=== PATIENT | male | born 1950 | race Caucasian/White ===

== ENCOUNTER 2017-01-12 07:46 | Day surgery (SDC) | payer BC ==
[~2017-01-12 07:46] MED LIST: Lactated Ringers 1,000 ML IV SCH; Lidocaine 1%/Sod Bicarbonate in NS 8.4% 1 ML Syringe PRN; Sodium Chloride 0.9% 10 ML Syringe FLUSH PRN
--- NOTE | 2017-01-12 08:50 | PCM.PREANE ---
Preanesthetic Assessment - Procedure Proposed Procedure: screening colonoscopy - Anesthesia/Transfusion/Family Hx Anesthesia History: Prior Anesthesia Without Reaction Family History of Anesthesia Reaction: No - Review of Systems General: No Symptoms Pulmonary: Shortness of Breath (with exertion) Cardiovascular: Chest Pain (with exertion) Gastrointestinal: No Symptoms Neurological: No Symptoms Other: Reports: None - Physical Assessment NPO Status Date: 01/11/17 NPO Status Time: 23:00 O2 Sat by Pulse Oximetry: 95 Respiratory Rate: 16 Vital Signs: Last Vital Signs Temp 36.5 C 01/12/17 07:50 Pulse 55 L 01/12/17 07:50 Resp 16 01/12/17 07:50 BP 145/64 H 01/12/17 07:50 Pulse Ox 95 01/12/17 07:50 Height: 1.78 m Weight: 130.635 kg ASA Class: 3 Mental Status: Alert & Oriented x3 Airway Class: Mallampati = 2 Dentition: Reports: [place](s), Broken Tooth/Teeth (upper right front) Thyro-Mental Finger Breadths: 3 Mouth Opening Finger Breadths: 3 ROM/Head Extension: Full Lungs: Clear to Auscultation, Normal Respiratory Effort Cardiovascular: Regular Rate, Regular Rhythm, Murmurs - Imaging/EKG Impressions: ECHOcardiogram and myocardial perfusion scan. 05/2016 EF 70-75% good lv fx moderate Ao stenosis Mild LV hypertrophy no perfusion defects except very small apical one - Allergies Allergies/Adverse Reactions: Allergies Allergy/AdvReac Type Severity Reaction Status Date / Time Penicillins Allergy Stomach Verified 01/11/17 16:02 Ache - Anesthesia Plan Beta Doug: Metoprolol Med Last Dose Date: 01/12/17 Med Last Dose Time: 06:15 - Acknowledgements Anesthesia Type Planned: MAC Pt an Appropriate Candidate for the Planned Anesthesia: Yes Alternatives and Risks of Anesthesia Discussed w Pt/Guardian: Yes Pt/Guardian Understands and Agrees with Anesthesia Plan: Yes PreAnesthesia Questionnaire HEENT History: Reports: Impaired Vision Cardiovascular History: Reports: Afib, Angina, CAD, High Cholesterol, Hypertension, Stents, Other (See Below) Other Cardiovascular History: aortic stenosis Respiratory History: Reports: SOB, Other (See Below) Other Respiratory History: pleural effusion, cough Genitourinary History: Reports: Other (See Below) Other Genitourinary History: impotence, prostate hypertrophy, nocturia, testicular hypofunction NURSING RESIDENT History: Reports: None Musculoskeletal History: Reports: Osteoarthritis, Other (See Below) Other Musculoskeletal History: anterolisthesis, spondylolsis of lumbar region, R knee osteroarthritis, muscle spasms, back spasms Neurological History: Reports: None Psychiatric History: Reports: Other (See Below) Other Psychiatric History: chronic pain Endocrine/Metabolic History: Reports: Obesity/BMI 30+, Other (See Below) Other Endocrine/Metabolic History: hyperglycemia Hematologic History: Reports: None Immunologic History: Reports: None Oncologic (Cancer) History: Reports: None Dermatologic History: Reports: None - Past Surgical History Head Surgeries/Procedures: Reports: None Cardiovascular Surgical History: Reports: Coronary Artery Bypass Respiratory Surgical History: Reports: Thoracentesis GI Surgical History: Reports: Colonoscopy Neurological Surgical History: Reports: None Musculoskeletal Surgical History: Reports: Other (See Below) Other Musculoskeletal Surgeries/Procedures:: bilateral rotator cuff repairs, R knee meniscus repair Oncologic Surgical History: Reports: None Dermatological Surgical History: Reports: None - SUBSTANCE USE Smoking Status *Q: Former Smoker (Quit 2002 with 90 pack year hx) Days Per Week of Alcohol Use: 0 (has a drink about once per month) Recreational Drug Use History: No - HOME MEDS Home Medications: Home Meds Aspirin 325 mg PO DAILY 01/11/17 [History] Carisoprodol [Soma] 350 mg PO BEDTIME 01/11/17 [History] Fish Oil/[place]-3 Fatty Acids [Fish Oil 1,000 MG] 1,000 mg PO DAILY 01/11/17 [ History] Hydrochlorothiazide 25 mg PO DAILY 01/11/17 [History] Lisinopril 10 mg PO DAILY 01/11/17 [History] Metoprolol Tartrate [Lopressor] 12.5 mg PO DAILY 01/11/17 [History] Nitroglycerin [Nitrostat] 0.4 mg SL Q5M PRN 01/11/17 [History] atorvaSTATin [Lipitor] 20 mg PO BEDTIME 01/11/17 [History] - CURRENT (IN HOUSE) MEDS Current Meds: Current Medications Lactated Ringer's (Ringers, Lactated) 1,000 mls @ 125 mls/hr IV ASDIRECTED MELVA Stop: 01/12/17 23:00 Last Admin: 01/12/17 08:05 Dose: 125 mls/hr Lidocaine/Sodium Bicarbonate (Buffered Lidocaine 1% In Ns 8.4%) 0.25 ml .XX ONETIME PRN PRN Reason: Prior to IV Start Stop: 01/12/17 18:00 Sodium Chloride (Saline Flush) 10 ml FLUSH ASDIRECTED PRN PRN Reason: Keep Vein Open Stop: 01/12/17 18:00 Discontinued Medications Propofol (Diprivan 20 Ml) Confirm Administered Dose 200 mg .ROUTE .STK-MED ONE Stop: 01/12/17 08:52
[2017-01-12] MEDS ORDERED: Propofol 200 MG/20 ML SDV ONE ×2 (08:51→09:13)
--- NOTE | 2017-01-12 08:55 | PCM.OPNOTE ---
- General Post-Op/Procedure Note Date of Surgery/Procedure: 01/12/17 Operative Procedure(s): Colonoscopy with hot snare polypectomy Findings: 0.7 cm transverse polyp, diverticulosis Pre Op Diagnosis: Age related colon cancer screening Post-Op Diagnosis: 0.7 cm transverse polyp, diverticulosis Anesthesia Technique: MAC Primary Surgeon: Chris Vazquez Anesthesia Provider: Brian Horn EBL in mLs: 0 Complications: none Condition: Good Free Text/Narrative:: After patient gave verbal and written consent he was placed on BP and pulse ox monitoring. He was given IV sedation which he tolerated well. THe olympus colonoscope was inserted per rectum and advanced to the cecum without difficulty. The ileocecal valve and appendiceal orfice were imaged documenting cecal intubation. The prep was good, the views were good. A 0.7 cm transverse polyp was noted and removed with hot snare polypectomy. The polyp was retrieved. Moderate Diverticulosis noted throughout the colon. The scope was retroflexed in the rectum and the details are above.
[2017-01-12] MEDS ORDERED: Lidocaine 1% 4 ML ONE (09:13)
[2017-01-12] MEDS ORDERED: fentaNYL 100 MCG/2 ML SDV ONE (09:13)
--- NOTE | 2017-01-12 09:15 | PCM48HPAN ---
Post Anesthesia Note - EVALUATION WITHIN 48HRS OF ANESTHETIC Vital Signs in Normal Range: Yes Patient Participated in Evaluation: Yes Respiratory Function Stable: Yes Airway Patent: Yes Cardiovascular Function Stable: Yes Hydration Status Stable: Yes Pain Control Satisfactory: Yes Nausea and Vomiting Control Satisfactory: Yes Mental Status Recovered: Yes
[2017-01-12 09:31] VITALS: BP 124/64
== END 2017-01-12 09:50 | disposition home or self-care (01) ==
LOC: JD.SDS 07:46
PROVIDERS: ATTEND Family Medicine
DX: Z12.11 Encounter for screening for malignant neoplasm of colon (principal); D12.3 Benign neoplasm of transverse colon; K57.30 Diverticulosis of large intestine without perforation or abscess without bleeding; I25.10 Atherosclerotic heart disease of native coronary artery without angina pectoris; I10 Essential (primary) hypertension; E78.00 Pure hypercholesterolemia, unspecified; N40.1 Benign prostatic hyperplasia with lower urinary tract symptoms; E66.01 Morbid (severe) obesity due to excess calories; R73.9 Hyperglycemia, unspecified; Z95.1 Presence of aortocoronary bypass graft; Z88.0 Allergy status to penicillin; Z98.890 Other specified postprocedural states; Z79.82 Long term (current) use of aspirin; Z79.899 Other long term (current) drug therapy; Z68.41 Body mass index [BMI] 40.0-44.9, adult; Z87.891 Personal history of nicotine dependence
CPT/HCPCS: 45385; J3010; J7120; 00810; J2704

== ENCOUNTER 2022-11-14 20:19 | Emergency (ER) | payer MEDICARE, OTHER ==
[2022-11-14] MEDS ORDERED: Aspirin 81 MG Tab.Chew PO ONE (20:50)
[2022-11-14 21:18] LABS: EOSINOPHILS ABSOLUTE AUTO 0.01 K/mm3 (0.04-0.54); EOSINOPHILS PERCENT AUTO 0.5 (0.8-7.0); HEMATOCRIT 19.5 % (40.1-51.0); LYMPHOCYTES ABSOLUTE AUTO 0.86 K/mm3 (1.32-3.57); LYMPHOCYTES PERCENT AUTO 41.7 % (21.8-53.1); MEAN CORPUSCULAR HGB CONC 32.3 g/dl (32.2-35.5); MEAN CORPUSCULAR VOLUME 86.7 fl (79.0-92.2); MEAN PLATELET VOLUME 9.6 fl (9.4-12.3); MONOCYTES ABSOLUTE AUTO 0.09 K/mm3 (0.30-0.82); MONOCYTES PERCENT AUTO 4.4 % (5.3-12.2); NEUTROPHILS PERCENT AUTO 53.4 % (34.0-67.9); PLATELET COUNT,PLT 45 K/mm3 (163-337); RED BLOOD CELL COUNT 2.25 M/mm3 (4.63-6.08)
[2022-11-14 21:25] LABS: HEMOGLOBIN 6.3 gm/dl (13.7-17.5); WHITE BLOOD CELL COUNT,WBC 2.06 K/mm3 (4.23-9.07)
[2022-11-14 21:49] LABS: A/G RATIO 0.7 (1-2); ALBUMIN 2.8 g/dl (3.4-5.0); ANION GAP 14.7 (5-15); BILIRUBIN TOTAL 0.5 mg/dL (0.2-1.0); BUN/CREATININE RATIO 33.3 (14-18); CALCIUM 8.7 mg/dL (8.5-10.1); CREATININE 1.5 mg/dL (0.7-1.3); EST CRCL DRUG DOSING (CG) 47.31 mL/min; POTASSIUM,K 4.7 mEq/L (3.5-5.1); PROTEIN TOTAL,TP 6.8 g/dl (6.4-8.2)
[2022-11-14 21:53] LABS: SLIDE REVIEW ABNORMAL SMEAR
[2022-11-14] MEDS ORDERED: Cyclobenzaprine 10 MG Tab PO ONE (22:47)
[2022-11-14] MEDS ORDERED: Gabapentin 300 MG Cap PO ONE (22:48)
[2022-11-14] MEDS ORDERED: Nortriptyline 10 MG Cap PO ONE (22:48)
[2022-11-14] MEDS ORDERED: Sodium Chloride 0.9% 1,000 ML IV SCH (23:15)
[2022-11-14] MEDS ORDERED: metFORMIN 500 MG Tab PO ONE (23:50)
[2022-11-15] MEDS ORDERED: Gabapentin 100 MG Cap PO ONE (00:01)
[2022-11-15 07:02] VITALS: BP 140/70; PULSE 80
[2022-11-15] MEDS ORDERED: Gabapentin 100 MG Cap PO SCH (21:00)
== END 2022-11-15 07:40 | disposition home or self-care (01) ==
LOC: JD.ED 20:19
DX: D64.9 Anemia, unspecified (principal); K92.1 Melena; E66.9 Obesity, unspecified; Z68.32 Body mass index [BMI] 32.0-32.9, adult; Z88.0 Allergy status to penicillin; Z79.899 Other long term (current) drug therapy; Z79.82 Long term (current) use of aspirin; Z95.1 Presence of aortocoronary bypass graft
CPT/HCPCS: 36415; 36430; 71045; 80053; 83880; 84484; 85018; 85025; 85379; 86850; 86900; 86901; 86922; 93005; 96372; 99285; A9270; P9016

== ENCOUNTER 2022-12-06 10:45 | Emergency (ER) | payer MEDICARE, OTHER ==
[2022-12-06 11:21] LABS: BASOPHILS ABSOLUTE AUTO 0.01 K/mm3 (0.01-0.08); BASOPHILS PERCENT AUTO 0.1 % (0.1-1.2); EOSINOPHILS PERCENT AUTO 1.4 (0.8-7.0); HEMATOCRIT 15.4 % (40.1-51.0); IMMATURE GRAN ABSOLUTE AUTO 0.02 K/mm3 (0.00-0.10); IMMATURE GRAN PERCENT AUTO 0.3 % (<=1.0); LYMPHOCYTES ABSOLUTE AUTO 1.76 K/mm3 (1.32-3.57); LYMPHOCYTES PERCENT AUTO 24.1 % (21.8-53.1); MEAN CORPUSCULAR HEMOGLOBIN 29.7 pg (25.7-32.2); MEAN CORPUSCULAR HGB CONC 31.8 g/dl (32.2-35.5); MEAN CORPUSCULAR VOLUME 93.3 fl (79.0-92.2); MEAN PLATELET VOLUME 9.4 fl (9.4-12.3); MONOCYTES ABSOLUTE AUTO 0.77 K/mm3 (0.30-0.82); MONOCYTES PERCENT AUTO 10.5 % (5.3-12.2); NEUTROPHILS ABSOLUTE AUTO 4.64 K/mm3 (1.78-5.38); NEUTROPHILS PERCENT AUTO 63.6 % (34.0-67.9); PLATELET COUNT,PLT 74 K/mm3 (163-337); RED BLOOD CELL COUNT 1.65 M/mm3 (4.63-6.08)
[2022-12-06 11:25] LABS: HEMOGLOBIN 4.9 gm/dl (13.7-17.5)
[2022-12-06] MEDS ORDERED: Pantoprazole 40 MG Vial IVPUSH ONE (11:51)
[2022-12-06] MEDS ORDERED: Lactated Ringers 1,000 ML IV ONE (11:52)
[2022-12-06 11:56] LABS: A/G RATIO 0.8 (1-2); ALBUMIN 2.9 g/dl (3.4-5.0); ANION GAP 18.6 (5-15); BILIRUBIN TOTAL 0.7 mg/dL (0.2-1.0); BUN/CREATININE RATIO 56.3 (14-18); CALCIUM 8.3 mg/dL (8.5-10.1); CREATININE 1.6 mg/dL (0.7-1.3); EST CRCL DRUG DOSING (CG) 44.36 mL/min; MAGNESIUM 1.8 mg/dL (1.8-2.4); POTASSIUM,K 4.6 mEq/L (3.5-5.1); PROTEIN TOTAL,TP 6.4 g/dl (6.4-8.2)
[2022-12-06 12:03] LABS: SLIDE REVIEW ABNORMAL SMEAR
[2022-12-06] MEDS ORDERED: Ondansetron 4 MG/2 ML SDV IVPUSH ONE (12:05)
[2022-12-06 12:26] LABS: LACTIC ACID 3.6 mmol/L (0.4-2.0)
[2022-12-06] MEDS ORDERED: Sodium Chloride 0.9% 250 ML IV SCH (12:45)
[2022-12-06 12:58] LABS: APPEARANCE,URINE CLEAR (Clear); BILIRUBIN,URINE NEGATIVE (Negative); COLOR,URINE YELLOW (Yellow); GLUCOSE,URINE NEGATIVE (Negative); KETONES,URINE NEGATIVE (Negative); LEUKOCYTE ESTERASE,URINE NEGATIVE (Negative); NITRITE,URINE NEGATIVE (Negative); OCCULT BLOOD,URINE NEGATIVE (Negative); PH,URINE 5.5 (5.0-8.0); PROTEIN,URINE NEGATIVE (Negative); UROBILINOGEN,URINE 0.2 (0.2-1.0)
[2022-12-06 17:04] VITALS: PULSE 78
[2022-12-06 17:18] VITALS: BP 127/60
== END 2022-12-06 17:30 ==
LOC: JD.ED 10:45
DX: R07.89 Other chest pain (principal); K92.2 Gastrointestinal hemorrhage, unspecified; D64.9 Anemia, unspecified; E66.9 Obesity, unspecified; Z68.33 Body mass index [BMI] 33.0-33.9, adult; I10 Essential (primary) hypertension; M19.90 Unspecified osteoarthritis, unspecified site; E78.00 Pure hypercholesterolemia, unspecified; I48.91 Unspecified atrial fibrillation; Z79.899 Other long term (current) drug therapy; Z88.0 Allergy status to penicillin; Z79.82 Long term (current) use of aspirin; Z79.02 Long term (current) use of antithrombotics/antiplatelets; Z79.4 Long term (current) use of insulin
CPT/HCPCS: 36415; 36430; 36556; 71045; 71260; 74177; 80053; 81003; 83605; 83690; 83735; 84484; 85025; 86850; 86900; 86901; 86922; 93005; 96361; 96374; 96375; 99285; C9113; J2405; J7050; J7120; P9016; 93010; 99284

== ENCOUNTER 2023-01-17 17:03 | Emergency (ER) | payer MEDICARE, OTHER ==
[2023-01-17 18:36] LABS: APPEARANCE,URINE CLEAR (Clear); BILIRUBIN,URINE 1+ (Negative); COLOR,URINE DARK YELLOW (Yellow); GLUCOSE,URINE NEGATIVE (Negative); KETONES,URINE TRACE (Negative); LEUKOCYTE ESTERASE,URINE NEGATIVE (Negative); NITRITE,URINE NEGATIVE (Negative); OCCULT BLOOD,URINE NEGATIVE (Negative); PH,URINE 5.5 (5.0-8.0); PROTEIN,URINE 2+ (Negative); UROBILINOGEN,URINE 0.2 (0.2-1.0)
[2023-01-17 18:42] LABS: BACTERIA,URINE MODERATE /hpf (FEW); MUCUS,URINE FEW /hpf (FEW); RBC,URINE 0-5 /hpf (0-5); SQUAMOUS EPITHELIAL CELLS,UR 0-5 /hpf (0-5); WBC,URINE 0-5 /hpf (0-5)
[2023-01-17 19:30] LABS: HEMATOCRIT 26.5 % (40.1-51.0); HEMOGLOBIN 8.6 gm/dl (13.7-17.5); MEAN CORPUSCULAR HEMOGLOBIN 32.1 pg (25.7-32.2); MEAN CORPUSCULAR HGB CONC 32.5 g/dl (32.2-35.5); MEAN CORPUSCULAR VOLUME 98.9 fl (79.0-92.2); PLATELET COUNT,PLT 42 K/mm3 (163-337); RED BLOOD CELL COUNT 2.68 M/mm3 (4.63-6.08)
[2023-01-17 19:31] LABS: MEAN PLATELET VOLUME 10.6 fl (9.4-12.3); WHITE BLOOD CELL COUNT,WBC 6.24 K/mm3 (4.23-9.07)
[2023-01-17 19:41] LABS: INR 1.11; PROTHROMBIN TIME 11.8 SECONDS (9.7-12.0)
[2023-01-17 19:42] LABS: A/G RATIO 0.6 (1-2); ALBUMIN 2.5 g/dl (3.4-5.0); ANION GAP 17.2 (5-15); BILIRUBIN TOTAL 1.2 mg/dL (0.2-1.0); BUN/CREATININE RATIO 13.7 (14-18); CALCIUM 8.3 mg/dL (8.5-10.1); CREATININE 3.5 mg/dL (0.7-1.3); EST CRCL DRUG DOSING (CG) 20.28 mL/min; MAGNESIUM 1.3 mg/dL (1.8-2.4); POTASSIUM,K 4.2 mEq/L (3.5-5.1); PROTEIN TOTAL,TP 6.8 g/dl (6.4-8.2); PTT,PARTIAL THROMBOPLSTIN TIME 26.9 SECONDS (21.7-31.4)
[2023-01-17 19:53] LABS: BAND PERCENT MAN 0 % (0-10); BASOPHILS PERCENT MAN 0 (0.2-1.2); EOSINOPHILS PERCENT MAN 1 % (0.8-7.0); LYMPHOCYTES % ATYPICAL MANUAL 0 %; LYMPHOCYTES PERCENT MAN 21 % (20-40); MONOCYTES PERCENT MAN 7 % (2-10)
[2023-01-17 19:54] LABS: PLATELET COUNT ESTIMATE DECREASED; TOXIC GRANULATION FEW
[2023-01-17 19:55] LABS: ANISOCYTOSIS 1+ SLIGHT; OVALOCYTES 1+ SLIGHT; POIKILOCYTOSIS 1+ SLIGHT
[2023-01-17] MEDS ORDERED: Magnesium Sulfate/Water 4 GM in Premix Bag 1 BAG IV ONE (19:56)
[2023-01-17] MEDS ORDERED: Acetaminophen/HYDROcodone 325-5 MG Tab PO PRN (22:57)
[2023-01-18 07:01] VITALS: BP 132/57; PULSE 67
== END 2023-01-18 06:58 ==
LOC: JD.ED 17:03
DX: J18.9 Pneumonia, unspecified organism (principal); N17.9 Acute kidney failure, unspecified; I48.91 Unspecified atrial fibrillation; I25.10 Atherosclerotic heart disease of native coronary artery without angina pectoris; E78.00 Pure hypercholesterolemia, unspecified; I10 Essential (primary) hypertension; M19.90 Unspecified osteoarthritis, unspecified site; E66.9 Obesity, unspecified; Z88.0 Allergy status to penicillin; Z79.899 Other long term (current) drug therapy; Z79.84 Long term (current) use of oral hypoglycemic drugs; Z79.82 Long term (current) use of aspirin; Z95.1 Presence of aortocoronary bypass graft; Z68.33 Body mass index [BMI] 33.0-33.9, adult
CPT/HCPCS: 36415; 80053; 81001; 83735; 83880; 84484; 85007; 85027; 85610; 85730; 93005; 96365; 96366; 99285; A9270; J3475; 93010

== ENCOUNTER 2023-04-23 13:07 | Inpatient (IN) | payer MEDICARE, BC ==
[2023-04-23 14:56] LABS: BASOPHILS PERCENT AUTO 0.7 % (0.0-1.0); EOSINOPHILS ABSOLUTE AUTO 0.1 K/mm3 (0.0-0.4); HEMATOCRIT 30.2 % (42.0-52.0); HEMOGLOBIN 9.5 gm/dl (14.0-18.0); IMMATURE GRAN ABSOLUTE AUTO 0.02 K/mm3 (0.00-0.05); IMMATURE GRAN PERCENT AUTO 0.4 % (0.0-0.4); LYMPHOCYTES ABSOLUTE AUTO 1.4 K/mm3 (1.0-4.8); LYMPHOCYTES PERCENT AUTO 30.4 % (24.0-44.0); MEAN CORPUSCULAR HEMOGLOBIN 29.1 pg (28.0-32.0); MEAN CORPUSCULAR HGB CONC 31.5 g/dl (32.0-36.0); MEAN CORPUSCULAR VOLUME 92.4 fl (83.0-99.0); MEAN PLATELET VOLUME 10.4 fl (9.4-12.4); MONOCYTES ABSOLUTE AUTO 0.5 K/mm3 (0.0-0.8); MONOCYTES PERCENT AUTO 10.7 % (0.0-8.0); NEUTROPHILS ABSOLUTE AUTO 2.6 K/mm3 (1.8-7.7); NEUTROPHILS PERCENT AUTO 55.8 % (41.0-71.0); PLATELET COUNT,PLT 87 K/mm3 (150-400); RED BLOOD CELL COUNT 3.27 M/mm3 (4.52-5.90)
[2023-04-23 15:15] LABS: A/G RATIO 0.4 (1-2); ANION GAP 13.9 (5-15); BILIRUBIN TOTAL 0.4 mg/dL (0.2-1.0); C-REACTIVE PROTEIN 7.5 mg/dL (<1.0); CALCIUM 8.7 mg/dL (8.5-10.1); CREATININE 1.1 mg/dL (0.7-1.3); EST CRCL DRUG DOSING (CG) 64.52 mL/min; POTASSIUM,K 3.9 mEq/L (3.5-5.1); PROTEIN TOTAL,TP 7.1 g/dl (6.4-8.2)
[2023-04-23 15:27] LABS: APPEARANCE,URINE CLEAR (Clear); BILIRUBIN,URINE NEGATIVE (Negative); COLOR,URINE YELLOW (Yellow); GLUCOSE,URINE NEGATIVE (Negative); KETONES,URINE NEGATIVE (Negative); LEUKOCYTE ESTERASE,URINE NEGATIVE (Negative); NITRITE,URINE NEGATIVE (Negative); OCCULT BLOOD,URINE NEGATIVE (Negative); PROTEIN,URINE 1+ (Negative); UROBILINOGEN,URINE 0.2 (0.2-1.0)
[2023-04-23 15:49] LABS: CORONAVIRUS COVID-19 NAA NEGATIVE (NEGATIVE); INFLUENZA A NAA NEGATIVE (NEGATIVE)
[2023-04-23] MEDS: Sodium Chloride 0.9% 10 ML Syringe FLUSH PRN (16:08)
[2023-04-23] MEDS ORDERED: oxyCODONE 5 MG Tab PO PRN (16:29)
[2023-04-23] MEDS ORDERED: Acetaminophen 325 MG Tab PO PRN (16:29)
[2023-04-23] MEDS ORDERED: Heparin Sodium 5,000 Units/ML Vial SUBCUT SCH (16:30)
[2023-04-23] MEDS ORDERED: Sodium Chloride 0.9% 1,000 ML IV SCH (16:30)
[2023-04-23 17:31] LABS: LACTIC ACID 1.9 mmol/L (0.4-2.0)
[2023-04-23] MEDS: cefTRIAXone 2 GM in Sodium Chloride 0.9% 100 ML IV SCH (18:06)
[2023-04-23] MEDS ORDERED: Metoprolol Succinate 25 MG Tab.ER PO SCH (21:00)
[2023-04-23] MEDS: Temazepam 7.5 MG Cap PO PRN (21:06)
[2023-04-23] MEDS ORDERED: Metoprolol Tartrate 25 MG Tab PO SCH (23:45)
[2023-04-24 00:25] LABS: EPITHELIAL CELLS,URINE 0-5 /hpf (0-5); RBC,URINE 0-5 /hpf (0-5); WBC,URINE 0-5 /hpf (0-5)
[2023-04-24 00:26] LABS: BACTERIA,URINE FEW /hpf (FEW); HYALINE CASTS,URINE 0-5 /lpf (0-5); MUCUS,URINE FEW /hpf (FEW)
[2023-04-24 06:36] LABS: BASOPHILS PERCENT AUTO 0.7 % (0.0-1.0); EOSINOPHILS ABSOLUTE AUTO 0.1 K/mm3 (0.0-0.4); HEMATOCRIT 29.1 % (42.0-52.0); IMMATURE GRAN ABSOLUTE AUTO 0.02 K/mm3 (0.00-0.05); IMMATURE GRAN PERCENT AUTO 0.4 % (0.0-0.4); LYMPHOCYTES ABSOLUTE AUTO 1.4 K/mm3 (1.0-4.8); LYMPHOCYTES PERCENT AUTO 29.7 % (24.0-44.0); MEAN CORPUSCULAR HEMOGLOBIN 28.6 pg (28.0-32.0); MEAN CORPUSCULAR HGB CONC 30.9 g/dl (32.0-36.0); MEAN CORPUSCULAR VOLUME 92.4 fl (83.0-99.0); MEAN PLATELET VOLUME 10.3 fl (9.4-12.4); MONOCYTES ABSOLUTE AUTO 0.5 K/mm3 (0.0-0.8); MONOCYTES PERCENT AUTO 10.6 % (0.0-8.0); NEUTROPHILS ABSOLUTE AUTO 2.6 K/mm3 (1.8-7.7); NEUTROPHILS PERCENT AUTO 56.6 % (41.0-71.0); PLATELET COUNT,PLT 81 K/mm3 (150-400); RED BLOOD CELL COUNT 3.15 M/mm3 (4.52-5.90); WHITE BLOOD CELL COUNT,WBC 4.61 K/mm3 (3.9-11.3)
[2023-04-24 06:55] LABS: A/G RATIO 0.4 (1-2); ALBUMIN 1.8 g/dl (3.4-5.0); BILIRUBIN TOTAL 0.5 mg/dL (0.2-1.0); CALCIUM 8.4 mg/dL (8.5-10.1); EST CRCL DRUG DOSING (CG) 70.97 mL/min; MAGNESIUM 1.6 mg/dL (1.8-2.4); PROTEIN TOTAL,TP 6.4 g/dl (6.4-8.2)
[2023-04-24 06:57] LABS: SLIDE REVIEW ABNORMAL SMEAR
[2023-04-24] MEDS ORDERED: Magnesium Sulfate/Water 2 GM in Premix Bag 1 BAG IV ONE (09:23)
[2023-04-24] MEDS: Metoprolol Tartrate 25 MG Tab PO SCH ×3 (09:55→21:09)
[2023-04-24] MEDS ORDERED: Albuterol 6.7 GM Inhaler INH PRN (09:55)
[2023-04-24] MEDS: Lisinopril 5 MG Tab PO SCH (11:27)
[2023-04-24] MEDS: Ondansetron 4 MG/2 ML SDV IV PRN (12:01)
[2023-04-24] MEDS: Acetaminophen 325 MG Tab PO SCH ×3 (14:31→21:06)
[2023-04-24] MEDS: Albuterol/Ipratropium 3.0-0.5 MG/3 ML Neb Soln NEB SCH ×2 (15:07→21:58)
[2023-04-24] MEDS: methylPREDNISolone Sodium Succinate 125 MG/2 ML SDV IVPUSH SCH (15:28)
[2023-04-24] MEDS: cefTRIAXone 2 GM in Sodium Chloride 0.9% 100 ML IV SCH (15:32)
[2023-04-24] MEDS ORDERED: Non-Formulary Medication 1 Each (Carisoprodol 350 MG Tablet) PO SCH (21:00)
[2023-04-24] MEDS: Magnesium Oxide 400 MG Tab PO SCH (21:07)
[2023-04-24] MEDS: Amitriptyline 25 MG Tab PO SCH (21:07)
[2023-04-24] MEDS: Formoterol/Mometasone 200-5 MCG 8.8 GM Inhaler IH SCH (21:58)
[2023-04-25] MEDS: methylPREDNISolone Sodium Succinate 125 MG/2 ML SDV IVPUSH SCH ×4 (04:57→23:55)
[2023-04-25] MEDS: Albuterol/Ipratropium 3.0-0.5 MG/3 ML Neb Soln NEB SCH ×5 (05:41→21:28)
[2023-04-25 05:45] LABS: A/G RATIO 0.4 (1-2); ALBUMIN 1.9 g/dl (3.4-5.0); ANION GAP 12.5 (5-15); BILIRUBIN TOTAL 0.6 mg/dL (0.2-1.0); CALCIUM 8.9 mg/dL (8.5-10.1); CREATININE 0.9 mg/dL (0.7-1.3); EST CRCL DRUG DOSING (CG) 78.86 mL/min; MAGNESIUM 2.1 mg/dL (1.8-2.4); POTASSIUM,K 4.5 mEq/L (3.5-5.1); PROTEIN TOTAL,TP 6.7 g/dl (6.4-8.2)
[2023-04-25 06:04] LABS: BASOPHILS PERCENT AUTO 0.4 % (0.0-1.0); EOSINOPHILS PERCENT AUTO 0.4 % (0.0-6.0); HEMATOCRIT 28.6 % (42.0-52.0); HEMOGLOBIN 9.1 gm/dl (14.0-18.0); IMMATURE GRAN ABSOLUTE AUTO 0.02 K/mm3 (0.00-0.05); IMMATURE GRAN PERCENT AUTO 0.4 % (0.0-0.4); LYMPHOCYTES ABSOLUTE AUTO 1.8 K/mm3 (1.0-4.8); LYMPHOCYTES PERCENT AUTO 34.9 % (24.0-44.0); MEAN CORPUSCULAR HEMOGLOBIN 28.8 pg (28.0-32.0); MEAN CORPUSCULAR HGB CONC 31.8 g/dl (32.0-36.0); MEAN CORPUSCULAR VOLUME 90.5 fl (83.0-99.0); MEAN PLATELET VOLUME 10.2 fl (9.4-12.4); MONOCYTES ABSOLUTE AUTO 0.4 K/mm3 (0.0-0.8); MONOCYTES PERCENT AUTO 7.9 % (0.0-8.0); NEUTROPHILS ABSOLUTE AUTO 2.9 K/mm3 (1.8-7.7); PLATELET COUNT,PLT 74 K/mm3 (150-400); RED BLOOD CELL COUNT 3.16 M/mm3 (4.52-5.90); WHITE BLOOD CELL COUNT,WBC 5.16 K/mm3 (3.9-11.3)
[2023-04-25 07:03] LABS: SLIDE REVIEW ABNORMAL SMEAR
[2023-04-25] MEDS: atorvaSTATin 40 MG Tab PO SCH (08:49)
[2023-04-25] MEDS: Torsemide 20 MG Tab PO SCH (08:49)
[2023-04-25] MEDS: Folic Acid 1 MG Tab PO SCH (08:49)
[2023-04-25] MEDS: Pantoprazole 40 MG Tab.CR PO SCH (08:49)
[2023-04-25] MEDS: Lisinopril 5 MG Tab PO SCH (08:49)
[2023-04-25] MEDS: Magnesium Oxide 400 MG Tab PO SCH ×2 (08:49→21:02)
[2023-04-25] MEDS: Acetaminophen 325 MG Tab PO SCH ×4 (08:50→21:02)
[2023-04-25] MEDS: Metoprolol Tartrate 25 MG Tab PO SCH ×2 (08:50→21:02)
[2023-04-25] MEDS ORDERED: Enoxaparin 40 MG/0.4 ML Syringe SUBCUT SCH (09:00)
[2023-04-25] MEDS ORDERED: OLANZapine 5 MG Tab PO SCH (09:00)
[2023-04-25] MEDS: Formoterol/Mometasone 200-5 MCG 8.8 GM Inhaler IH SCH ×2 (09:22→21:28)
[2023-04-25] MEDS: cefTRIAXone 2 GM in Sodium Chloride 0.9% 100 ML IV SCH (17:55)
[2023-04-25] MEDS: Amitriptyline 25 MG Tab PO SCH (21:02)
[2023-04-26] MEDS: Albuterol/Ipratropium 3.0-0.5 MG/3 ML Neb Soln NEB SCH ×6 (01:13→21:44)
[2023-04-26 05:55] LABS: HEMATOCRIT 28.1 % (42.0-52.0); HEMOGLOBIN 8.9 gm/dl (14.0-18.0); MEAN CORPUSCULAR HEMOGLOBIN 28.9 pg (28.0-32.0); MEAN CORPUSCULAR HGB CONC 31.7 g/dl (32.0-36.0); MEAN CORPUSCULAR VOLUME 91.2 fl (83.0-99.0); MEAN PLATELET VOLUME 9.9 fl (9.4-12.4); PLATELET COUNT,PLT 76 K/mm3 (150-400); RED BLOOD CELL COUNT 3.08 M/mm3 (4.52-5.90); WHITE BLOOD CELL COUNT,WBC 3.99 K/mm3 (3.9-11.3)
[2023-04-26 06:03] LABS: A/G RATIO 0.3 (1-2); ALBUMIN 1.8 g/dl (3.4-5.0); ANION GAP 13.2 (5-15); BILIRUBIN TOTAL 0.4 mg/dL (0.2-1.0); C-REACTIVE PROTEIN 11.5 mg/dL (<1.0); CALCIUM 8.8 mg/dL (8.5-10.1); EST CRCL DRUG DOSING (CG) 70.97 mL/min; POTASSIUM,K 4.2 mEq/L (3.5-5.1); PROTEIN TOTAL,TP 7.1 g/dl (6.4-8.2)
[2023-04-26] MEDS ORDERED: Azithromycin 250 MG in Sodium Chloride 0.9% 250 ML IV SCH (08:30)
[2023-04-26] MEDS: Torsemide 20 MG Tab PO SCH (08:38)
[2023-04-26] MEDS: OLANZapine 5 MG Tab PO SCH (08:38)
[2023-04-26] MEDS: Magnesium Oxide 400 MG Tab PO SCH ×2 (08:38→21:06)
[2023-04-26] MEDS: Metoprolol Tartrate 25 MG Tab PO SCH ×2 (08:38→21:04)
[2023-04-26] MEDS: atorvaSTATin 40 MG Tab PO SCH (08:38)
[2023-04-26] MEDS: Pantoprazole 40 MG Tab.CR PO SCH (08:38)
[2023-04-26] MEDS: Folic Acid 1 MG Tab PO SCH (08:39)
[2023-04-26] MEDS: Acetaminophen 325 MG Tab PO SCH ×4 (08:39→21:06)
[2023-04-26] MEDS: methylPREDNISolone Sodium Succinate 125 MG/2 ML SDV IVPUSH SCH ×2 (08:39→16:45)
[2023-04-26] MEDS ORDERED: Magnesium Sulfate/Water 2 GM in Premix Bag 1 BAG IV ONE (09:15)
[2023-04-26] MEDS: Formoterol/Mometasone 200-5 MCG 8.8 GM Inhaler IH SCH ×2 (09:17→21:44)
[2023-04-26] MEDS ORDERED: Bumetanide 1 MG/4 ML MDV IVPUSH ONE (09:42)
[2023-04-26] MEDS: Lisinopril 5 MG Tab PO SCH (09:49)
[2023-04-26] MEDS ORDERED: Piperacillin/Tazobactam 4.5 GM in Sodium Chloride 0.9% 100 ML IV ONE (15:00)
[2023-04-26] MEDS: Piperacillin/Tazobactam 4.5 GM in Sodium Chloride 0.9% 100 ML IV SCH (20:58)
[2023-04-26] MEDS: Amitriptyline 25 MG Tab PO SCH (21:06)
[2023-04-27] MEDS: methylPREDNISolone Sodium Succinate 125 MG/2 ML SDV IVPUSH SCH (01:10)
[2023-04-27] MEDS: Albuterol/Ipratropium 3.0-0.5 MG/3 ML Neb Soln NEB SCH ×6 (02:11→21:08)
[2023-04-27] MEDS: Piperacillin/Tazobactam 4.5 GM in Sodium Chloride 0.9% 100 ML IV SCH ×3 (04:38→20:43)
[2023-04-27 05:24] LABS: HEMATOCRIT 29.1 % (42.0-52.0); HEMOGLOBIN 9.2 gm/dl (14.0-18.0); MEAN CORPUSCULAR HEMOGLOBIN 28.8 pg (28.0-32.0); MEAN CORPUSCULAR HGB CONC 31.6 g/dl (32.0-36.0); MEAN CORPUSCULAR VOLUME 90.9 fl (83.0-99.0); MEAN PLATELET VOLUME 10.7 fl (9.4-12.4); PLATELET COUNT,PLT 83 K/mm3 (150-400); WHITE BLOOD CELL COUNT,WBC 4.89 K/mm3 (3.9-11.3)
[2023-04-27 05:27] LABS: A/G RATIO 0.4 (1-2); ALBUMIN 1.9 g/dl (3.4-5.0); ANION GAP 13.9 (5-15); BILIRUBIN TOTAL 0.5 mg/dL (0.2-1.0); C-REACTIVE PROTEIN 5.4 mg/dL (<1.0); CALCIUM 8.6 mg/dL (8.5-10.1); CREATININE 1.2 mg/dL (0.7-1.3); EST CRCL DRUG DOSING (CG) 59.14 mL/min; MAGNESIUM 2.2 mg/dL (1.8-2.4); POTASSIUM,K 3.9 mEq/L (3.5-5.1); PROTEIN TOTAL,TP 6.8 g/dl (6.4-8.2)
[2023-04-27] MEDS ORDERED: methylPREDNISolone Sod Succ 125 MG in Sodium Chloride 0.9% 250 ML IV SCH (09:00)
[2023-04-27] MEDS ORDERED: Bumetanide 1 MG/4 ML MDV IVPUSH ONE (09:00)
[2023-04-27] MEDS: Formoterol/Mometasone 200-5 MCG 8.8 GM Inhaler IH SCH ×2 (09:11→21:08)
[2023-04-27] MEDS: Metoprolol Tartrate 25 MG Tab PO SCH ×2 (09:23→20:42)
[2023-04-27] MEDS: Folic Acid 1 MG Tab PO SCH (09:23)
[2023-04-27] MEDS: methylPREDNISolone Sodium Succinate 125 MG/2 ML SDV IV SCH ×2 (09:23→20:42)
[2023-04-27] MEDS: Pantoprazole 40 MG Tab.CR PO SCH (09:24)
[2023-04-27] MEDS: OLANZapine 5 MG Tab PO SCH (09:24)
[2023-04-27] MEDS: atorvaSTATin 40 MG Tab PO SCH (09:24)
[2023-04-27] MEDS: Magnesium Oxide 400 MG Tab PO SCH ×2 (09:24→20:43)
[2023-04-27] MEDS ORDERED: LORazepam 0.5 MG Tab PO PRN (16:49)
[2023-04-27] MEDS: Amitriptyline 25 MG Tab PO SCH (20:43)
[2023-04-28] MEDS: Albuterol/Ipratropium 3.0-0.5 MG/3 ML Neb Soln NEB SCH ×6 (02:53→22:11)
[2023-04-28] MEDS: Piperacillin/Tazobactam 4.5 GM in Sodium Chloride 0.9% 100 ML IV SCH ×3 (05:05→21:35)
[2023-04-28 05:45] LABS: HEMATOCRIT 29.4 % (42.0-52.0); MEAN CORPUSCULAR HEMOGLOBIN 27.8 pg (28.0-32.0); MEAN CORPUSCULAR HGB CONC 30.6 g/dl (32.0-36.0); MEAN CORPUSCULAR VOLUME 90.7 fl (83.0-99.0); MEAN PLATELET VOLUME 9.9 fl (9.4-12.4); NRBC ABSOLUTE 0.03 (0.00-0.02); NRBC PERCENT 0.6 % (0.0-0.2); PLATELET COUNT,PLT 84 K/mm3 (150-400); RED BLOOD CELL COUNT 3.24 M/mm3 (4.52-5.90); WHITE BLOOD CELL COUNT,WBC 4.71 K/mm3 (3.9-11.3)
[2023-04-28 06:15] LABS: A/G RATIO 0.4 (1-2); ANION GAP 10.6 (5-15); BILIRUBIN TOTAL 0.5 mg/dL (0.2-1.0); C-REACTIVE PROTEIN 2.8 mg/dL (<1.0); CREATININE 1.3 mg/dL (0.7-1.3); EST CRCL DRUG DOSING (CG) 54.59 mL/min; POTASSIUM,K 4.6 mEq/L (3.5-5.1); PROTEIN TOTAL,TP 6.8 g/dl (6.4-8.2)
[2023-04-28] MEDS: methylPREDNISolone Sodium Succinate 125 MG/2 ML SDV IV SCH ×2 (08:26→21:35)
[2023-04-28] MEDS: Pantoprazole 40 MG Tab.CR PO SCH (08:26)
[2023-04-28] MEDS: atorvaSTATin 40 MG Tab PO SCH (08:26)
[2023-04-28] MEDS: Folic Acid 1 MG Tab PO SCH (08:26)
[2023-04-28] MEDS: Magnesium Oxide 400 MG Tab PO SCH ×2 (08:26→21:36)
[2023-04-28] MEDS: Metoprolol Tartrate 25 MG Tab PO SCH ×2 (08:26→21:36)
[2023-04-28] MEDS: OLANZapine 5 MG Tab PO SCH (08:32)
[2023-04-28] MEDS: Formoterol/Mometasone 200-5 MCG 8.8 GM Inhaler IH SCH ×2 (09:10→22:11)
[2023-04-28] MEDS: Amitriptyline 25 MG Tab PO SCH (21:36)
[2023-04-29] MEDS: Albuterol/Ipratropium 3.0-0.5 MG/3 ML Neb Soln NEB SCH ×6 (02:17→22:05)
[2023-04-29] MEDS: Piperacillin/Tazobactam 4.5 GM in Sodium Chloride 0.9% 100 ML IV SCH ×3 (05:14→20:43)
[2023-04-29 05:32] LABS: HEMOGLOBIN 9.4 gm/dl (14.0-18.0); MEAN CORPUSCULAR HEMOGLOBIN 28.6 pg (28.0-32.0); MEAN CORPUSCULAR HGB CONC 31.3 g/dl (32.0-36.0); MEAN CORPUSCULAR VOLUME 91.2 fl (83.0-99.0); MEAN PLATELET VOLUME 9.8 fl (9.4-12.4); NRBC ABSOLUTE 0.02 (0.00-0.02); NRBC PERCENT 0.5 % (0.0-0.2); PLATELET COUNT,PLT 83 K/mm3 (150-400); RED BLOOD CELL COUNT 3.29 M/mm3 (4.52-5.90); WHITE BLOOD CELL COUNT,WBC 3.93 K/mm3 (3.9-11.3)
[2023-04-29 05:50] LABS: A/G RATIO 0.4 (1-2); ANION GAP 11.9 (5-15); BILIRUBIN TOTAL 0.6 mg/dL (0.2-1.0); BUN/CREATININE RATIO 31.7 (14-18); C-REACTIVE PROTEIN 1.7 mg/dL (<1.0); CALCIUM 8.8 mg/dL (8.5-10.1); CREATININE 1.2 mg/dL (0.7-1.3); EST CRCL DRUG DOSING (CG) 59.14 mL/min; POTASSIUM,K 4.9 mEq/L (3.5-5.1); PROTEIN TOTAL,TP 6.6 g/dl (6.4-8.2)
[2023-04-29] MEDS: Magnesium Oxide 400 MG Tab PO SCH ×2 (08:05→20:43)
[2023-04-29] MEDS: atorvaSTATin 40 MG Tab PO SCH (08:05)
[2023-04-29] MEDS: Pantoprazole 40 MG Tab.CR PO SCH (08:05)
[2023-04-29] MEDS: Metoprolol Tartrate 25 MG Tab PO SCH ×2 (08:06→20:43)
[2023-04-29] MEDS: methylPREDNISolone Sodium Succinate 125 MG/2 ML SDV IV SCH ×2 (08:06→20:42)
[2023-04-29] MEDS: Folic Acid 1 MG Tab PO SCH (08:06)
[2023-04-29] MEDS: OLANZapine 5 MG Tab PO SCH (08:06)
[2023-04-29] MEDS: Ondansetron 4 MG/2 ML SDV IV PRN ×2 (08:07→17:05)
[2023-04-29] MEDS ORDERED: Bumetanide 1 MG/4 ML MDV IVPUSH ONE (08:54)
[2023-04-29] MEDS: Formoterol/Mometasone 200-5 MCG 8.8 GM Inhaler IH SCH ×3 (09:34→22:07)
[2023-04-29] MEDS: LORazepam 2 MG/ML SDV IVPUSH PRN (12:56)
[2023-04-29] MEDS: fentaNYL 100 MCG/2 ML SDV IVPUSH PRN (12:58)
[2023-04-29] MEDS: Amitriptyline 25 MG Tab PO SCH (20:44)
[2023-04-30] MEDS: Temazepam 7.5 MG Cap PO PRN (00:02)
[2023-04-30] MEDS: Albuterol/Ipratropium 3.0-0.5 MG/3 ML Neb Soln NEB SCH ×3 (02:09→09:19)
[2023-04-30] MEDS: Piperacillin/Tazobactam 4.5 GM in Sodium Chloride 0.9% 100 ML IV SCH (05:16)
[2023-04-30 05:23] LABS: HEMATOCRIT 32.2 % (42.0-52.0); HEMOGLOBIN 9.9 gm/dl (14.0-18.0); MEAN CORPUSCULAR HEMOGLOBIN 28.9 pg (28.0-32.0); MEAN CORPUSCULAR HGB CONC 30.7 g/dl (32.0-36.0); MEAN CORPUSCULAR VOLUME 93.9 fl (83.0-99.0); MEAN PLATELET VOLUME 9.7 fl (9.4-12.4); PLATELET COUNT,PLT 81 K/mm3 (150-400); RED BLOOD CELL COUNT 3.43 M/mm3 (4.52-5.90); WHITE BLOOD CELL COUNT,WBC 4.04 K/mm3 (3.9-11.3)
[2023-04-30 05:40] LABS: A/G RATIO 0.5 (1-2); ALBUMIN 2.1 g/dl (3.4-5.0); ANION GAP 10.8 (5-15); BILIRUBIN TOTAL 0.5 mg/dL (0.2-1.0); BUN/CREATININE RATIO 29.2 (14-18); CALCIUM 8.9 mg/dL (8.5-10.1); CREATININE 1.2 mg/dL (0.7-1.3); EST CRCL DRUG DOSING (CG) 59.14 mL/min; POTASSIUM,K 4.8 mEq/L (3.5-5.1); PROTEIN TOTAL,TP 6.8 g/dl (6.4-8.2)
[2023-04-30] MEDS: Ondansetron 4 MG/2 ML SDV IV PRN (08:05)
[2023-04-30] MEDS: Metoprolol Tartrate 25 MG Tab PO SCH (08:06)
[2023-04-30] MEDS: OLANZapine 5 MG Tab PO SCH (08:06)
[2023-04-30] MEDS: Folic Acid 1 MG Tab PO SCH (08:06)
[2023-04-30] MEDS: Magnesium Oxide 400 MG Tab PO SCH (08:06)
[2023-04-30] MEDS: Pantoprazole 40 MG Tab.CR PO SCH (08:06)
[2023-04-30 08:24] VITALS: BP 121/73
[2023-04-30] MEDS ORDERED: methylPREDNISolone Sod Succ 125 MG in Sodium Chloride 0.9% 250 ML IV SCH (09:00)
[2023-04-30] MEDS ORDERED: methylPREDNISolone Sodium Succinate 125 MG/2 ML SDV IVPUSH SCH (09:00)
[2023-04-30] MEDS: Formoterol/Mometasone 200-5 MCG 8.8 GM Inhaler IH SCH (09:19)
[2023-04-30] MEDS: fentaNYL 100 MCG/2 ML SDV IVPUSH PRN ×12 (09:50→22:56)
[2023-04-30] MEDS: LORazepam 2 MG/ML SDV IVPUSH PRN ×12 (09:51→22:57)
[2023-04-30] MEDS ORDERED: Glycopyrrolate 0.2 MG/ML SDV IVPUSH PRN (10:23)
[2023-04-30] MEDS: Sodium Chloride 0.9% 10 ML Syringe FLUSH PRN ×3 (18:39→21:30)
[2023-04-30 23:20] VITALS: PULSE 116
[2023-05-01] MEDS: fentaNYL 100 MCG/2 ML SDV IVPUSH PRN ×6 (00:21→07:34)
[2023-05-01] MEDS: LORazepam 2 MG/ML SDV IVPUSH PRN ×5 (00:21→07:05)
== END 2023-05-01 08:49 | disposition expired | DRG 196 ==
LOC: JD.ED 13:07 → JD.MS 16:29 → JD.ICU 04-24 17:38
PROVIDERS: ADMIT Internal Medicine; ATTEND Internal Medicine
PROC: 5A0935A Assistance with Respiratory Ventilation, Less than 24 Consecutive Hours, High Flow/Velocity Cannula (ICD-10-PCS; principal; 2023-04-24)
DX: J84.10 Pulmonary fibrosis, unspecified (principal); J18.9 Pneumonia, unspecified organism; J80 Acute respiratory distress syndrome; C34.90 Malignant neoplasm of unspecified part of unspecified bronchus or lung; C78.7 Secondary malignant neoplasm of liver and intrahepatic bile duct; C77.2 Secondary and unspecified malignant neoplasm of intra-abdominal lymph nodes; Z66 Do not resuscitate; Z51.5 Encounter for palliative care; J84.9 Interstitial pulmonary disease, unspecified; D69.6 Thrombocytopenia, unspecified; I25.10 Atherosclerotic heart disease of native coronary artery without angina pectoris; E11.9 Type 2 diabetes mellitus without complications; I48.91 Unspecified atrial fibrillation; Z96.659 Presence of unspecified artificial knee joint; T45.1X5A Adverse effect of antineoplastic and immunosuppressive drugs, initial encounter; E83.42 Hypomagnesemia; E78.00 Pure hypercholesterolemia, unspecified; I10 Essential (primary) hypertension; M19.90 Unspecified osteoarthritis, unspecified site; E66.9 Obesity, unspecified; Z79.84 Long term (current) use of oral hypoglycemic drugs; Z95.1 Presence of aortocoronary bypass graft; Z87.891 Personal history of nicotine dependence; Z88.0 Allergy status to penicillin; Z79.899 Other long term (current) drug therapy; Z79.82 Long term (current) use of aspirin; Z98.890 Other specified postprocedural states; Z11.52 Encounter for screening for COVID-19; Z68.28 Body mass index [BMI] 28.0-28.9, adult
CPT/HCPCS: 0240U; 36415; 71045; 71045-26; 76705; 76705-26; 80053; 81001; 83605; 83735; 85025; 85027; 86140; 93005; 93010; 94640; 94667; 94668; 94760; 94761; 99223; 99233; 99238; 99284; 99285; A9270-GY; J0456; J0696; J2060; J2405; J2543; J2930; J3010; J3475; J3490; J7030; J7050; J7620-GY